=== PATIENT | male | born 1970 | race Hispanic/Latino ===

== ENCOUNTER 2017-11-26 11:42 | Emergency (ER) | payer OTHER ==
[2017-11-26] MEDS ORDERED: KETOROLAC TROMETHAMINE 30MG/ML ONE (12:49)
== END 2017-11-26 14:39 | disposition home or self-care (01) ==
LOC: EDH 11:42
DX: S13.4XXA Sprain of ligaments of cervical spine, initial encounter (principal); Z87.891 Personal history of nicotine dependence; V49.49XA Driver injured in collision with other motor vehicles in traffic accident, initial encounter; Y93.89 Activity, other specified; Y92.89 Other specified places as the place of occurrence of the external cause; Y99.8 Other external cause status
CPT/HCPCS: 72040; 99284; J1885